=== PATIENT | female | born 1955 | race African-American/Black ===

== ENCOUNTER 2017-07-01 21:06 | Emergency (ER) | payer MEDICAID ==
[~2017-07-01] VITALS: Ht 160 cm; Wt 59.0 kg
[~2017-07-01 21:06] MED LIST: IBUPROFEN600 MG ORAL; NORCO 5-325 TA1 EACH ORAL
[2017-07-01] MEDS ORDERED: Morphine Sulfate 4mg/ml Inj IVP ONE (21:30)
[2017-07-01 22:46] LABS: BASOPHILS % (AUTO) 0.9 % (0.0-2.0); HEMATOCRIT 53.3 % (37.0-47.0); HEMOGLOBIN 16.5 G/DL (12.0-16.0); LYMPHOCYTES % (AUTO) 22.5 % (20.0-45.0); MEAN CORPUSCULAR VOLUME 86 FL (80-99); MONOCYTES % (AUTO) 7.1 % (1.0-10.0); NEUTROPHILS % (AUTO) 68.5 % (45.0-75.0); PLATELET COUNT 222 K/UL (150-450); RED BLOOD COUNT 6.16 M/UL (4.20-5.40); RED CELL DISTRIBUTION WIDTH 13.6 % (11.6-14.8); WHITE BLOOD COUNT 9.2 K/UL (4.8-10.8)
[2017-07-01 22:59] LABS: APPEARANCE,URINE CLEAR; BILIRUBIN, URINE NEGATIVE (NEGATIVE); COLOR,URINE PALE YELLOW; GLUCOSE, URINE (UA) NEGATIVE (NEGATIVE); KETONES,URINE NEGATIVE (NEGATIVE); LEUKOCYTE ESTERASE ,URINE NEGATIVE (NEGATIVE); NITRITE,URINE NEGATIVE (NEGATIVE); PH,URINE 8 (4.5-8.0); PROTEIN,URINE NEGATIVE (NEGATIVE); UROBILINOGEN,URINE NORMAL MG/DL (0.0-1.0)
[2017-07-01 22:59] LABS: ANION GAP 7 mmol/L (5-15); BLOOD UREA NITROGEN 15 mg/dL (7-18); CALCIUM 8.4 MG/DL (8.5-10.1); CARBON DIOXIDE 30 MMOL/L (21-32); CHLORIDE 106 MMOL/L (98-107); CREATININE 0.9 MG/DL (0.55-1.30); POTASSIUM 4.5 MMOL/L (3.5-5.1); SODIUM 143 MMOL/L (136-145)
[2017-07-01 23:03] LABS: ALANINE AMINOTRANSFERASE 79 U/L (12-78); ALBUMIN 0.8 G/DL (3.4-5.0); ALKALINE PHOSPHATASE 69 U/L (46-116); ASPARTATE AMINO TRANSFERASE 36 U/L (15-37); BILIRUBIN,TOTAL 0.5 MG/DL (0.2-1.0)
[2017-07-02 01:00] VITALS: BP 166/94
[2017-07-02] MEDS ORDERED: Morphine Sulfate 4mg/ml Inj IVP ONE (01:45)
[2017-07-02 01:53] LABS: INR 0.9 (0.9-1.1)
[2017-07-02 03:00] VITALS: BP 173/108
--- NOTE | 2017-07-02 04:34 | Emergency Room Report ---
History of Present Illness General Chief Complaint: Constipation Source: Patient Present Illness HPI 61-year-old female presents ED for evaluation. Patient came in by EMS stating that she is constipated. No bowel movement x2 days. States she is having abdominal distention pain is a 10 out of 10, sharp, nonradiating. Patient states she has history of bowel obstruction in the past. Denies chest pain or shortness of breath. Denies fevers or chills. Denies nausea or vomiting. No other aggravating or relieving factors. Denies any other associated symptoms Allergies: Coded Allergies: PENICILLINS (Verified Allergy, Unknown, 10/05/14) Patient History Past Medical History: CHF, asthma, other - multiple myeloma Pertinent Family History: none Social History: Denies: smoking, alcohol use, drug use Last Menstrual Period: n/a Now: No Immunizations: UTD Reviewed Nursing Documentation: PMH: Agreed, PSxH: Agreed Nursing Documentation-PMH Past Medical History: No History, Except For Hx Cardiac Problems: Yes - CHF Hx Asthma: Yes Hx Cancer: Yes - MULTIPLE MYELOMA Review of Systems All Other Systems: negative except mentioned in HPI Physical Exam Vital Signs Date Time Temp Pulse Resp B/P (MAP) Pulse Ox O2 Delivery O2 Flow Rate FiO2 07/01/17 21:04 86 22 165/102 99 Room Air Sp02 EP Interpretation: reviewed, normal General Appearance: no apparent distress, alert, GCS 15, non-toxic Head: normocephalic Eyes: bilateral eye normal inspection, bilateral eye PERRL ENT: normal ENT inspection Neck: normal inspection Respiratory: chest non-tender, lungs clear, normal breath sounds, speaking full sentences Cardiovascular #1: regular rate, rhythm, no edema Gastrointestinal: normal bowel sounds, soft, no guarding, no rebound, distended , tenderness Rectal: deferred Genitourinary: no CVA tenderness Musculoskeletal: normal inspection Neurologic: alert, oriented x3, responsive, motor strength/tone normal, sensory intact, speech normal Psychiatric: normal inspection Skin: normal inspection Lymphatic: normal inspection Medical Decision Making Diagnostic Impression: Primary Impression: Small bowel obstruction ER Course Hospital Course 61-year-old female presents to ED with abdominal pain and vomiting. History of bowel obstruction Differential diagnoses include: BPH, cystitis, pyelonephritis, kidney stone,SBO Clinical course Patient placed on stretcher. alarm security or surveillance monitor. After initial history and physical I ordered labs, IV fluids, UA, pain medication and CT scan Labs - no leukocytosis, Hb/Hct stable. electrolytes ok. CT abdomen and pelvis - SBO with transition point in RLQ NG tube placed. because of insurance patient will be transferred I feel this is a highly complex case requiring extensive working including EKG/ Rhythm strip, Xray/CT/US, Blood/urine lab work, repeat exams while in ED, and administration of strong opiates/narcotics for pain control, admission to hospital or close patient follow up. Diagnosis - small bowel obstruction transferred in serious condition Labs Test 07/01/17 22:24 07/01/17 22:30 07/01/17 22:40 White Blood Count 9.2 K/UL (4.8-10.8) Red Blood Count 6.16 M/UL (4.20-5.40) Hemoglobin 16.5 G/DL (12.0-16.0) Hematocrit 53.3 % (37.0-47.0) Mean Corpuscular Volume 86 FL (80-99) Mean Corpuscular Hemoglobin 26.8 PG (27.0-31.0) Mean Corpuscular Hemoglobin Concent 31.0 G/DL (32.0-36.0) Red Cell Distribution Width 13.6 % (11.6-14.8) Platelet Count 222 K/UL (150-450) Mean Platelet Volume 8.2 FL (6.5-10.1) Neutrophils (%) (Auto) 68.5 % (45.0-75.0) Lymphocytes (%) (Auto) 22.5 % (20.0-45.0) Monocytes (%) (Auto) 7.1 % (1.0-10.0) Eosinophils (%) (Auto) 1.0 % (0.0-3.0) Basophils (%) (Auto) 0.9 % (0.0-2.0) Sodium Level 143 MMOL/L (136-145) Potassium Level 4.5 MMOL/L (3.5-5.1) Chloride Level 106 MMOL/L (98-107) Carbon Dioxide Level 30 MMOL/L (21-32) Anion Gap 7 mmol/L (5-15) Blood Urea Nitrogen 15 mg/dL (7-18) Creatinine 0.9 MG/DL (0.55-1.30) Estimat Glomerular Filtration Rate > 60 mL/min (>60) Glucose Level 104 MG/DL (74-106) Calcium Level 8.4 MG/DL (8.5-10.1) Total Bilirubin 0.5 MG/DL (0.2-1.0) Aspartate Amino Transf (AST/SGOT) 36 U/L (15-37) Alanine Aminotransferase (ALT/SGPT) 79 U/L (12-78) Alkaline Phosphatase 69 U/L (46-116) Total Protein 7.9 G/DL (6.4-8.2) Albumin 0.8 G/DL (3.4-5.0) Globulin 6.1 g/dL Lipase 97 U/L (73-393) Prothrombin Time 9.4 SEC (9.30-11.50) Prothromb Time International Ratio 0.9 (0.9-1.1) Activated Partial Thromboplast Time 30 SEC (23-33) Urine Color Pale yellow Urine Appearance Clear Urine pH 8 (4.5-8.0) Urine Specific [place] 1.010 (1.005-1.035) Urine Protein Negative (NEGATIVE) Urine Glucose (UA) Negative (NEGATIVE) Urine Ketones Negative (NEGATIVE) Urine Occult Blood Negative (NEGATIVE) Urine Nitrite Negative (NEGATIVE) Urine Bilirubin Negative (NEGATIVE) Urine Urobilinogen Normal MG/DL (0.0-1.0) Urine Leukocyte Esterase Negative (NEGATIVE) CT/MRI/US Diagnostic Results CT/MRI/US Diagnostic Results : Imaging Test Ordered: CT A/P Impression small bowel obstruction. transition point in right lower quadrant Last Vital Signs Date Time Temp Pulse Resp B/P (MAP) Pulse Ox O2 Delivery O2 Flow Rate FiO2 07/02/17 03:00 79 16 173/108 97 Room Air Status: improved Disposition: XFER SHT-TRM HOSP Condition: Serious Referrals: [facility],REFERRING (PCP) LIA PERRIN M.D. Jul 02, 2017 04:34
[2017-07-02] MEDS ORDERED: Lisinopril 10mg tab ORAL ONE (04:45)
[2017-07-02 05:00] VITALS: BP 175/98
[2017-07-02 06:00] VITALS: BP 168/91
[2017-07-02 06:23] VITALS: BP 169/91
--- NOTE | 2017-07-02 20:13 | Diagnostic Imaging Report ---
Indication: Upper abdominal pain x1 day Technique: CT of the abdomen and pelvis utilizing automated exposure control with intravenous contrast. Venous scanning performed. CT dose: Total DLP 628.65 mGycm; CTDI vol 12.54 mGy Comparison: None Findings: Dependent atelectatic changes noted in the bilateral lower lobes. Heart size within normal limits. There is no pericardial effusion. No focal liver lesion is appreciated on this single phase study. Hepatic veins and portal veins are patent. Gallbladder is unremarkable in appearance. Spleen, adrenal glands and pancreas are unremarkable. The kidneys enhance symmetrically. There is a nonobstructing stone in the lower pole of the left kidney (series 3 image #33) no evidence of hydronephrosis bilaterally. The bladder is mildly distended but otherwise unremarkable. The patient is status post hysterectomy. The stomach is moderately distended. There is abnormal distention of multiple small bowel loops, with some hyperenhancement of the saenz suggestive of a small bowel obstruction. Transition point is difficult to delineate but likely in the right lower quadrant as the terminal ileal is decompressed and of normal caliber. There is no pneumatosis, free intraperitoneal air or portal venous gas. There is mild ascites. Moderate stool is noted throughout the colon. There is colonic diverticulosis without evidence of acute diverticulitis. Abdominal aorta is normal in caliber. No bulky abdominal pelvic adenopathy identified. There are degenerative changes in the lower lumbar spine. No acute osseous abnormality is noted. Impression: Abnormal distention of multiple distal small bowel loops with wall hyperenhancement concerning for small bowel obstruction. Transition point is difficult to delineate, especially as oral contrast has not traversed past the stomach at time of scanning. Likely transition point is in the right lower quadrant as the terminal ileal loops are decompressed and of normal caliber. There is mild associated ascites. No free intraperitoneal air. No pneumatosis intestinalis or portal venous gas at this time. Colonic diverticulosis without evidence of acute diverticulitis. Punctate, nonobstructing left renal stone. This corresponds with the statrad preliminary report. The CT scanner at [facility] is accredited by the [employer] and the scans are performed using protocols designed to limit radiation exposure to as low as reasonably achievable to attain images of sufficient resolution adequate for diagnostic evaluation.
== END 2017-07-02 21:50 | disposition short-term general hospital (02) ==
LOC: EDBD 21:06 → EMR 21:10
DX: K56.609 Unspecified intestinal obstruction, unspecified as to partial versus complete obstruction (principal); K59.00 Constipation, unspecified; J45.909 Unspecified asthma, uncomplicated; C90.00 Multiple myeloma not having achieved remission; I50.9 Heart failure, unspecified; K57.30 Diverticulosis of large intestine without perforation or abscess without bleeding; N20.0 Calculus of kidney; Z88.0 Allergy status to penicillin
CPT/HCPCS: 36415; 74177; 80053; 81003; 83690; 85025; 85610; 85730; 86850; 86900; 86901; 96361; 96374; 96375; 96376; 99285; J0360; J2270; J2405; Q9967